=== PATIENT | male | born 1975 | race Hispanic/Latino ===

== ENCOUNTER 2018-11-09 12:56 | Emergency (ER) | payer SELFPAY ==
[2018-11-09] MEDS ORDERED: Ketorolac Tromethamine 60 MG/2 ML VIAL ONE (13:35)
== END 2018-11-09 14:02 | disposition home or self-care (01) ==
LOC: ERS 12:56
DX: M54.32 Sciatica, left side (principal)
CPT/HCPCS: 96372; J1885

== ENCOUNTER 2018-11-18 02:18 | Emergency (ER) | payer SELFPAY ==
[2018-11-18] MEDS ORDERED: Ketorolac Tromethamine 60 MG/2 ML VIAL ONE (02:39)
== END 2018-11-18 03:16 | disposition home or self-care (01) ==
LOC: ERS 02:18
DX: M54.42 Lumbago with sciatica, left side (principal); Z79.899 Other long term (current) drug therapy
CPT/HCPCS: 96372; J1885